=== PATIENT | female | born 1950 | race Caucasian/White ===

== ENCOUNTER 2016-07-12 10:40 | Outpatient (CLI) | payer OTHER ==
[2016-03-28 08:04] VITALS: BP 132/60
[2016-07-12 12:48] LABS: BASOPHILS % 0.4 (0.0-1.5); EOSINOPHILS % 2.2 % (0.0-6.8); LYMPHOCYTES # 2.4 # k/uL (0.6-4.0); MEAN CORPUSCULAR HEMOGLOBIN 28.1 pg (28.0-34.0); MONOCYTES # 0.5 # k/uL (0.0-0.9); MONOCYTES % 4.2 % (0.0-11.0); NEUTROPHILS # 7.8 # k/uL (1.4-7.7)
[2016-07-12 13:25] LABS: eGFR (African) > 60; eGFR (Non-African) > 60
== END 2016-07-12 10:41 ==
LOC: CARD 10:40
PROVIDERS: ATTEND Internal Medicine Cardiovascular Disease
DX: I50.9 Heart failure, unspecified (principal); I10 Essential (primary) hypertension; E78.5 Hyperlipidemia, unspecified; E66.9 Obesity, unspecified; E11.9 Type 2 diabetes mellitus without complications; G47.30 Sleep apnea, unspecified
CPT/HCPCS: 36415; 80053; 82150; 85025; G0463

== ENCOUNTER 2016-08-02 14:24 | Outpatient (CLI) | payer OTHER ==
[2016-03-28 08:04] VITALS: BP 132/60
== END 2016-08-02 14:25 ==
LOC: CARD 14:24
PROVIDERS: ATTEND Internal Medicine Cardiovascular Disease
DX: I50.9 Heart failure, unspecified (principal); I10 Essential (primary) hypertension; E78.5 Hyperlipidemia, unspecified; E11.9 Type 2 diabetes mellitus without complications; G47.30 Sleep apnea, unspecified
CPT/HCPCS: G0463

== ENCOUNTER 2016-10-13 14:15 | Outpatient (CLI) | payer OTHER ==
[2016-03-28 08:04] VITALS: BP 132/60
[2016-10-13 14:54] LABS: eGFR (African) > 60; eGFR (Non-African) > 60
== END 2016-10-13 14:16 ==
LOC: LAB 14:15
PROVIDERS: ATTEND Physician Assistant
DX: R07.89 Other chest pain (principal)
CPT/HCPCS: 36415; 80053; 84484

== ENCOUNTER 2016-10-18 14:08 | Outpatient (CLI) | payer OTHER ==
[2016-03-28 08:04] VITALS: BP 132/60
== END 2016-10-18 14:10 ==
LOC: CARD 14:08
PROVIDERS: ATTEND Internal Medicine Cardiovascular Disease
DX: I50.9 Heart failure, unspecified (principal); E78.5 Hyperlipidemia, unspecified; I10 Essential (primary) hypertension; E66.9 Obesity, unspecified; E11.9 Type 2 diabetes mellitus without complications; G47.30 Sleep apnea, unspecified; Z79.899 Other long term (current) drug therapy
CPT/HCPCS: 93005; G0463

== ENCOUNTER 2016-11-28 08:51 | Outpatient (CLI) | payer OTHER ==
[2016-03-28 08:04] VITALS: BP 132/60
[2016-11-28 09:57] LABS: eGFR (African) > 60; eGFR (Non-African) > 60
== END 2016-11-28 13:05 ==
LOC: LAB 08:51
PROVIDERS: ATTEND Internal Medicine Cardiovascular Disease
DX: I50.9 Heart failure, unspecified (principal)
CPT/HCPCS: 36415; 80048

== ENCOUNTER 2016-11-29 13:29 | Outpatient (CLI) | payer OTHER ==
[2016-03-28 08:04] VITALS: BP 132/60
== END 2016-11-29 13:35 | disposition home or self-care (01) ==
LOC: CARD 13:29
PROVIDERS: ATTEND Internal Medicine Cardiovascular Disease
DX: I50.9 Heart failure, unspecified (principal)
CPT/HCPCS: G0463

== ENCOUNTER 2017-02-08 10:57 | Outpatient (CLI) | payer OTHER ==
[2016-03-28 08:04] VITALS: BP 132/60
[2017-02-08 11:29] LABS: eGFR (African) > 60; eGFR (Non-African) > 60
--- NOTE | 2017-02-08 15:12 | Diagnostic Imaging Report ---
JETT NEGRETE [facility] [address] [facility].[address] [address] Report Submission Date: Feb 08, 2017 12:28:06 PM CDT Patient Study Name: CHIQUI FIGUEROA Date: Feb 08, 2017 11:21:27 AM CDT Modality Type: CR Gender: F Description: CHEST : 54 Institution: [facility] Physician: JETT NEGRETE Examination: PA and lateral chest. History: Evaluate lung flores. Comparison exams: None available Findings: PA lateral chest demonstrate a normal cardiac and mediastinal silhouette. Minimal vascular calcifications involving the aortic arch. No focal infiltrate. No effusion. No blunting of the costophrenic margins. Osseous structures are appropriate for age. Impression: No acute pulmonary process. Electronically signed on Feb 08, 2017 12:28:06 PM CDT by: Clayton Guardado Presumed right tracheal osteophytes - correlation with older exam is recommended when available. If new, CT chest would be warranted. Addendum electronically signed by Clayton Guardado on February 08, 2017 12:29:12 PM CDT [facility]
== END 2017-02-08 11:00 ==
LOC: RAD 10:57
PROVIDERS: ATTEND Physician Assistant
DX: R06.02 Shortness of breath (principal)
CPT/HCPCS: 36415; 71020; 80048; 83880

== ENCOUNTER 2017-05-10 14:08 | Outpatient (CLI) | payer OTHER ==
[2016-03-28 08:04] VITALS: BP 132/60
--- NOTE | 2017-05-10 14:54 | Diagnostic Imaging Report ---
MOLLY VICTORIA [facility] [id number] [facility] [address] 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 History: Evaluate lung flores. Comparison exam: 08 February 2017 Findings: PA lateral chest demonstrate a normal cardiac and mediastinal silhouette. Few vascular calcifications involving the aortic arch. No focal infiltrate. No blunting of the costophrenic margins. Stable densities involving the right paratracheal region - presumed osteophytes. Osseous structures are appropriate for age. Impression: Stable chest. No acute pulmonary process. 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
== END 2017-05-10 14:10 ==
LOC: LAB 14:08
PROVIDERS: ATTEND Family Medicine
DX: J20.9 Acute bronchitis, unspecified (principal); R07.2 Precordial pain
CPT/HCPCS: 36415; 71020; 84484

== ENCOUNTER 2017-07-04 10:15 | Outpatient (CLI) | payer OTHER ==
[2016-03-28 08:04] VITALS: BP 132/60
== END 2017-07-04 10:16 ==
LOC: CARD 10:15
PROVIDERS: ATTEND Internal Medicine Cardiovascular Disease
DX: I50.9 Heart failure, unspecified (principal); R07.9 Chest pain, unspecified; E78.5 Hyperlipidemia, unspecified; I10 Essential (primary) hypertension; E66.9 Obesity, unspecified; G47.30 Sleep apnea, unspecified; Z79.899 Other long term (current) drug therapy; Z01.810 Encounter for preprocedural cardiovascular examination
CPT/HCPCS: G0463

== ENCOUNTER 2017-07-05 12:08 | Outpatient (CLI) | payer OTHER ==
[2016-03-28 08:04] VITALS: BP 132/60
== END 2017-07-05 12:10 ==
LOC: LAB 12:08
PROVIDERS: ATTEND Internal Medicine Cardiovascular Disease
DX: I50.9 Heart failure, unspecified (principal)
CPT/HCPCS: 36415; 80061

== ENCOUNTER 2017-07-15 12:30 | Emergency (ER) | payer OTHER ==
--- NOTE | 2017-07-15 12:47 | ED Physician Documentation ---
General Adult - HISTORIAN Historian: patient - HPI Stated Complaint: sob Chief Complaint: General Adult Onset: hours Timing: still present Severity: moderate Further Comments: yes (Pt is a 66 yo female with sob. Pt has hx asthma, COPD, CHF and a recent dx breast cancer. Pt has had chills, body aches x 3 days. Pt has been using home asthma inhalers.) - ROS CONST: chills, other (malaise) EYES/ENT: none CVS/RESP: shortness of breath GI/: none MS/SKIN/LYMPH: none - PAST HX Past History: other (Asthma, COPD, CHF, Anxiety, Depression, DM, Neuropathy, GERD, HLD, Thyroid dz, Gout, CHERYL, ) Surgeries/Procedures: cholecystectomy, hysterectomy, other (ortho surg) Allergies/Adverse Reactions: Allergies Allergy/AdvReac Type Severity Reaction Status Date / Time doxazosin mesylate Allergy Verified 07/15/17 13:04 [From Cardura] levofloxacin [From Levaquin] Allergy Verified 07/15/17 13:04 lisinopril Allergy Verified 07/15/17 13:04 Home Medications: Ambulatory Orders Medication Instructions Recorded Allopurinol [Zyloprim] 300 mg PO DAILY u2 08/15/12 Levothyroxine Sodium [Unithroid] 100 mcg PO DAILY u2 08/15/12 Spironolactone 25 mg PO DAILY u2 08/15/12 Metformin HCl [Glucophage] [place] [address] #60 tablet 11/25/13 Celecoxib [Celebrex] 1 tab PO DAILY 06/14/14 Atorvastatin Calcium [Lipitor] 80 mg PO DAILY u2 06/18/14 Fenofibrate Nanocrystallized 48 mg PO DAILY u2 06/18/14 [Tricor] Metoprolol Tartrate [Lopressor] 25 mg PO BID u2 06/18/14 Albuterol Sulfate [Ventolin HFN] 2.5 mg NEB Q4 ampul.neb 03/28/16 Omeprazole 20 mg PO D #30 capsule. 03/28/16 Azithromycin [Zithromax] 250 mg PO DAILY #6 tablet 07/15/17 Budesonide [Pulmicort] 0.5 mg IH BID 07/15/17 - SOCIAL HX Smoking History: quit greater than 1 year - FAMILY HX Family History: No - VITAL SIGNS Vital Signs: Vital Signs Temp Pulse Resp BP Pulse Ox 132/60 03/28/16 10:35 - REVIEWED ASSESSMENTS Nursing Assessment Reviewed: Yes Vitals Reviewed: Yes Progress - Progress Progress: CXR: PA lateral chest demonstrate a normal cardiac and mediastinal silhouette. Few vascular calcifications involving the aortic arch. No focal infiltrate. No blunting of the costophrenic margins. Osseous structures are appropriate for age. Impression: Stable chest. No acute pulmonary process. Rx Azithromycin 250 mg. Take 2 tablets by mouth at the same time on Day #1. Take one tablet by mouth once daily for the next 4 days. General Adult Physical Exam - PHYSICAL EXAM GENERAL APPEARANCE: mild distress EENT: pharynx normal, TM's nml NECK: normal inspection, supple RESPIRATORY: no resp distress, chest non-tender, wheezes CVS: reg rate & rhythm, heart sounds normal ABDOMEN: soft, no organomegaly, normal bowel sounds BACK: normal inspection, no CVA tenderness SKIN: warm/dry, normal color EXTREMITIES: non-tender, normal range of motion, no evidence of injury NEURO: oriented X3, motor nml, sensation nml Discharge Clincal Impression: URI (upper respiratory infection) Qualifiers: URI type: unspecified URI Qualified Code(s): J06.9 - Acute upper respiratory infection, unspecified Asthma Qualifiers: Asthma severity: unspecified severity Asthma persistence: unspecified Asthma complication type: unspecified Qualified Code(s): J45.909 - Unspecified asthma, uncomplicated Prescriptions: Azithromycin [Zithromax] 250 mg PO DAILY #6 tablet Referrals: Tha Dill MD [Primary Care Provider] - Condition: Stable Disposition: 01 HOME, SELF-CARE Decision to Admit: NO Decision Time: 15:23
[2017-07-15] MEDS ORDERED: IPRATROPIUM/ALBUTEROL SULFATE 3 ML AMPUL.NEB NEB ONE (12:50)
--- NOTE | 2017-07-15 13:34 | Diagnostic Imaging Report ---
[facility] [address] [facility].[address] 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 History: PATIENT STATES SHORTNESS OF BREATH AND COUGH. FORMER SMOKER. HISTORY OF BREAST CANCER. (Hx) / SHORTNESS OF BREATH (DICOM Hx) / SHORTNESS OF BREATH ( Pt comments) Comparison exam: 10 May 2017 Findings: PA lateral chest demonstrate a normal cardiac and mediastinal silhouette. Few vascular calcifications involving the aortic arch. No focal infiltrate. No blunting of the costophrenic margins. Osseous structures are appropriate for age. Impression: Stable chest. No acute pulmonary process. Electronically signed on Jul 15, 2017 1:32:03 PM PUBLIC HEALTH TECHNOLOGIST by: Clayton JC
[2017-07-15 13:55] VITALS: BP 149/53
== END 2017-07-15 13:53 | disposition home or self-care (01) ==
LOC: ED 12:30
DX: J06.9 Acute upper respiratory infection, unspecified (principal); J44.1 Chronic obstructive pulmonary disease with (acute) exacerbation
CPT/HCPCS: 71020; 71046; 94640; 99283

== ENCOUNTER 2019-02-20 11:34 | Outpatient (CLI) | payer MEDICARE, OTHER ==
[2019-02-20 12:17] LABS: eGFR (Non-African) > 60
--- NOTE | 2019-02-21 14:28 | Diagnostic Imaging Report ---
KATHY SAAVEDRA [facility] [address] [facility].[address] [address] Report Submission Date: Feb 20, 2019 12:08:01 PM CDT Patient Study Name: CHIQUI FIGUEROA Date: Feb 20, 2019 11:45:53 AM CDT Modality Type: DX Gender: F Description: CHEST 2VIEW : 54 Institution: [facility] Physician: KATHY SAAVEDRA Chest two views Indication: Chest pain and shortness of breath Findings: 2 views of the chest compared to 05-10-17 shows cardiomegaly. There is accentuated central bronchovascular markings but no consolidation, pleural effusion or pneumothorax is demonstrated. There are degenerative changes of the thoracic spine. Impression: Cardiomegaly Electronically signed on Feb 20, 2019 12:08:01 PM CDT by: Shaheen JC
== END 2019-02-20 11:36 ==
LOC: LAB 11:34
PROVIDERS: ATTEND Nurse Practitioner Family
DX: R07.9 Chest pain, unspecified (principal); J06.9 Acute upper respiratory infection, unspecified
CPT/HCPCS: 36415; 71046; 80053; 82553; 84484; 93005

== ENCOUNTER 2019-04-05 10:44 | Outpatient (CLI) | payer MEDICARE, OTHER | END 2019-04-05 10:49 | LOC: LAB 10:44 | PROVIDERS: ATTEND Family Medicine | DX: E03.9 Hypothyroidism, unspecified (principal) | CPT/HCPCS: 36415; 84443 ==